=== PATIENT | female | born 1965 | race Caucasian/White ===

== ENCOUNTER 2020-01-29 08:28 | Emergency (ER) | payer OTHER ==
[~2020-01-29] VITALS: Ht 165.1 cm; Wt 86.2 kg
[~2020-01-29 08:28] MED LIST: ATIVAN0.5 MG PO; HYDROCODONE BIT1 T11 PO
[2020-01-29] MEDS ORDERED: NAPROSYN500 MG PO (11:04)
[2020-01-29] MEDS ORDERED: Motrin,Rufen800 MG PO (11:50)
== END 2020-01-29 10:42 | disposition home or self-care (01) ==
LOC: ED 08:28
DX: M77.8 Other enthesopathies, not elsewhere classified (principal); Z79.899 Other long term (current) drug therapy

== ENCOUNTER → 2020-02-07 | Outpatient (CLI) | payer OTHER ==
[~2020-02-07] MED LIST changes: +ASPIRIN81 M1 PO; +Motrin,Rufen800 MG PO; +NAPROSYN500 MG PO
[2020-02-07 11:29] LABS: BASO # 0.1 10*3/uL (0.0-0.1); EOS # 0.3 10*3/uL (0.0-0.4); EOS % 3.8 % (1.0-4.0); HEMATOCRIT 42.9 % (37.0-47.0); LYMPH # 2.2 10*3/uL (1.3-4.4); LYMPH % 31.8 % (27.0-41.0); MEAN CORPUSCULAR HGB 28.6 pg (27.0-31.0); MEAN CORPUSCULAR HGB CONC 32.2 g/dl (33.0-37.0); MEAN PLATELET VOLUME 9.1 fl (9.6-12.3); MONO # 0.4 10*3/uL (0.1-1.0); MONO % 6.2 % (3.0-9.0); NEUT # 3.9 10*3/uL (2.3-7.9); NEUT % 56.5 % (47.0-73.0); PLATELET COUNT AUTOMATED 317 10*3/uL (130-400); RED BLOOD COUNT 4.82 10*6/uL (4.10-5.10); RED CELL DISTRI WIDTH 13.1 % (0-14.5); WHITE BLOOD COUNT 6.9 10*3/uL (4.8-10.8)
[2020-02-07 12:02] LABS: THYROID STIM HORMONE (HS) 10.7 uIU/ml (0.358-4.75)
--- NOTE | 2020-02-07 13:00 | NUR ---
INFORMED CONSENT SIGNED FOR CARDIOLYTE STRESS TEST WITH DR. ESCALERA. RESTING EKG NSR/LBBB. HR 74, BP 136/84. COMPLETED 6:00 OF A STANDARD HUMBERTO PROTOCOL COMPLETING 3:00 STAGE II, 2.5 MPH/12% GRADE. PEAK HEART RATE OF 152 ACHIEVED WHICH IS 91% PREDICTED MAXIMUM AND A PEAK BP OF 140/72. TEST TERMINATED D/T FATIGUE. PVC NOTED WITH NO ST CHANGES. HAS AN AVERAGE EXERCISE TOLERANCE. LAST RECOVERY HR 99, BP 136/80. WAITNG NUCLEAR SCANNING IN STABLE CONDITION.
== END | disposition home or self-care (01) ==
LOC: LAB 00:02 → CARD 00:02
PROVIDERS: ATTEND Internal Medicine Cardiovascular Disease
DX: I20.0 Unstable angina (principal); R00.2 Palpitations; R94.31 Abnormal electrocardiogram [ECG] [EKG]; Z87.891 Personal history of nicotine dependence; Z82.49 Family history of ischemic heart disease and other diseases of the circulatory system

== ENCOUNTER → 2020-02-11 | Outpatient (CLI) | payer OTHER | END | disposition home or self-care (01) | LOC: CARD 02-04 09:30 | PROVIDERS: ATTEND Internal Medicine Cardiovascular Disease | DX: I20.0 Unstable angina (principal); R00.2 Palpitations; R94.31 Abnormal electrocardiogram [ECG] [EKG]; Z87.891 Personal history of nicotine dependence; Z82.49 Family history of ischemic heart disease and other diseases of the circulatory system ==